=== PATIENT | female | born 1955 | race Caucasian/White ===

== ENCOUNTER → 2021-06-07 | Outpatient (CLI) | payer OTHER ==
[~2021-06-07] MED LIST: IBUPROFEN 800800 M1 PO; NOHOMEMEDICATIONS; NORCO 5-325 TA1 EACH PO
== END ==
LOC: M.LAB 10:00 → M.CT 11:00
DX: K44.9 Diaphragmatic hernia without obstruction or gangrene (principal); K86.2 Cyst of pancreas; K66.8 Other specified disorders of peritoneum; M54.5 Low back pain; G89.29 Other chronic pain; R19.00 Intra-abdominal and pelvic swelling, mass and lump, unspecified site